=== PATIENT | female | born 1990 | race Caucasian/White ===

== ENCOUNTER 2023-06-19 08:23 | Emergency (ER) | payer OTHER, SELFPAY | END 2023-06-19 08:50 | LOC: EMR 08:23 | PROVIDERS: EMERGENCY PHYSICIAN Obstetrics & Gynecology; FAMILY PHYSICIAN Emergency Medicine | DX: Z03.79 Encounter for other suspected maternal and fetal conditions ruled out (principal); Z53.21 Procedure and treatment not carried out due to patient leaving prior to being seen by health care provider | CPT/HCPCS: 59025 ==

== ENCOUNTER 2025-05-05 20:09 | Emergency (ER) | payer OTHER, SELFPAY ==
[2025-05-05 20:19] VITALS: BP 129/95
[2025-05-05 20:50] VITALS: BP 102/65
[2025-05-05 21:03] LABS: Hematocrit 33.8 % (37.0-47.0); Hemoglobin 11.8 g/dL (12.0-16.0); Mean Corp Hgb Conc. 34.9 g/dL (33.0-37.0); Mean Corpuscular Volume 85.4 fL (81.0-99.0); Platelet Count 328 10^3/uL (130-400); Red Cell Dist. Width 12.4 % (11.5-14.5)
--- NOTE | 2025-05-05 21:13 | ED.GENMED ---
History of Present Illness
<Shahram Dacosta MD - Last Filed: 05/05/25 21:15>
General
Chief Complaint: Problems
Source: patient
Exam Limitations: none
Time Seen by Provider: 05/05/25 20:54
History of Present Illness
History of Present Illness:
G3, P2, 9 weeks presents with vaginal bleeding. Mild the last 3 to 4 days. Became severe since 5 PM this evening. Has gone through 3 pads in 90 minutes. Passed out in triage. No abdominal pain. No fever or chills.
Past History
<Shahram Dacosta MD - Last Filed: 05/05/25 21:15>
Past History
ED Past Medical History: None
Social History
Tobacco: Non-smoker
Personal:
Review of Systems
<Shahram Dacosta MD - Last Filed: 05/05/25 21:15>
Review of Systems
All Other Systems: Not applicable
Constitutional: Denies fever
Phy Exam
<Shahram Dacosta MD - Last Filed: 05/05/25 21:15>
Physical Exam
Physical Exam:
GENERAL: Alert and oriented. Stable vital signs but mildly pale
EYE: Orbits normal.
NECK: Supple
CARDIAC: Regular rate and rhythm without any obvious murmurs.
LUNGS: Clear breath sounds,normal
ABDOMEN: Soft, without focal tenderness or distention.
: Speculum exam, upon opening the speculum significant bleeding from the vaginal vault.
NEUROLOGICAL: Alert and oriented , grossly non-focal
SKIN: Mildly pale
MUSCULOSKELETAL: No edema,no deformity.Good color
PSYCH: Normal and appropriate interaction.
Course
<Shahram Dacosta MD - Last Filed: 05/05/25 21:15>
Orders/Labs/Results
Orders:
Orders
05/05/25 20:25
EKG [Electrocardiogram (*1)] Urgent
Reason for Study: Tachycardia
EKG- Treatment ONCE
05/05/25 20:26
US Transvaginal Only Urgent
Reason For Exam: threatened miscarriage
05/05/25 20:47
Type+Screen Urgent
Beta HCG Quantitative Urgent
Is this a screen?: No
Comment: is 9w3d states she is O+
Complete Blood Count/With Diff Urgent
05/05/25 23:35
LDRP Pathology Routine
Date Specimen was Collected: 05/05/25
Pre-Operative Diagnosis: missed AB
Operative Procedure: N/A
Gestational Age: 9w
Tissue Submitted: Other
Other Tissue Submitted: Products of conception
Abnormal Lab Results
05/05/25
20:47
WBC 15.7 H 10^3/uL
(4.8-10.8)
RBC 3.96 L 10^6/uL
(4.20-5.40)
Hgb 11.8 L g/dL
(12.0-16.0)
Hct 33.8 L %
(37.0-47.0)
Absolute Neuts (auto) 7.7 H 10^3/uL
(1.4-6.5)
Absolute Lymphs (auto) 6.8 H 10^3/uL
(1.2-3.4)
Absolute Monos (auto) 0.8 H 10^3/uL
(0.1-0.6)
05/05/25 20:47
Vital Signs
Initial and Last Documented VS:
Initial Vital Signs
Temp Pulse Resp BP Pulse Ox
98.2 F 102 20 129/95 98
05/05/25 20:19 05/05/25 20:19 05/05/25 20:19 05/05/25 20:19 05/05/25 20:19
Last Documented Vital Signs
Temp Pulse Resp BP Pulse Ox
98.2 F 102 15 118/55 98
05/05/25 20:19 05/05/25 23:30 05/05/25 23:30 05/05/25 23:00 05/05/25 23:30
<Brandyn Alamo, DO - Last Filed: 05/07/25 23:46>
Orders/Labs/Results
Orders:
Orders
05/05/25 20:25
EKG [Electrocardiogram (*1)] Urgent
Reason for Study: Tachycardia
EKG- Treatment ONCE
05/05/25 20:26
US Transvaginal Only Urgent
Reason For Exam: threatened miscarriage
05/05/25 20:47
Type+Screen Urgent
Beta HCG Quantitative Urgent
Is this a screen?: No
Comment: is 9w3d states she is O+
Complete Blood Count/With Diff Urgent
05/05/25 23:35
LDRP Pathology Routine
Date Specimen was Collected: 05/05/25
Pre-Operative Diagnosis: missed AB
Operative Procedure: N/A
Gestational Age: 9w
Tissue Submitted: Other
Other Tissue Submitted: Products of conception
Abnormal Lab Results
05/05/25
20:47
WBC 15.7 H 10^3/uL
(4.8-10.8)
RBC 3.96 L 10^6/uL
(4.20-5.40)
Hgb 11.8 L g/dL
(12.0-16.0)
Hct 33.8 L %
(37.0-47.0)
Absolute Neuts (auto) 7.7 H 10^3/uL
(1.4-6.5)
Absolute Lymphs (auto) 6.8 H 10^3/uL
(1.2-3.4)
Absolute Monos (auto) 0.8 H 10^3/uL
(0.1-0.6)
05/05/25 20:47
Vital Signs
Initial and Last Documented VS:
Initial Vital Signs
Temp Pulse Resp BP Pulse Ox
98.2 F 102 20 129/95 98
05/05/25 20:19 05/05/25 20:19 05/05/25 20:19 05/05/25 20:19 05/05/25 20:19
Last Documented Vital Signs
Temp Pulse Resp BP Pulse Ox
98.2 F 102 15 118/55 98
05/05/25 20:19 05/05/25 23:30 05/05/25 23:30 05/05/25 23:00 05/05/25 23:30
Information
Weeks gestation: N/A
Location: N/A
<Shahram Dacosta MD - Last Filed: 05/05/25 21:15>
MDM/Problems Addressed
Differential Diagnosis Includes:
Differential would include miscarriage, ectopic. Significant bleeding clinically. However hemoglobin reasonably stable. OB was updated upon her initial evaluation and after the speculum exam. Going to ultrasound currently
<Shahram Dacosta MD - Last Filed: 05/05/25 21:15>
*Pulse Oximetry
SaO2: 98
Oxygen Mode of Delivery: Room air
<Brandyn Alamo DO - Last Filed: 05/07/25 23:46>
*Pulse Oximetry
Patient hypoxic: yes
*Critical Care Note
Total Time (30-74mins, 75-104mins- exclusive of procedures): Not Applicable
<Brandyn Alamo DO - Last Filed: 05/07/25 23:46>
Update Note
Update Note:
Patient seen by Dr. Minda Arguello from [facility]. After exam, large clot was removed. Patient is cleared to be discharged. She has follow-up scheduled for next week.
ED Attending Note
<Shahram Dacosta MD - Last Filed: 05/05/25 21:15>
-
Portions of this chart may have been created with voice recognition software.� Occasional wrong word or��sound alike� substitutions may have occurred due to the inherent limitations of voice recognition software.
Discharge Plan
Departure
Patient Disposition: Home (Routine Discharge)
Date of Disposition: 05/05/25
Time of Disposition: 23:39
Patient with high blood pressure during this ER visit?: Yes
Condition: Good
Discharge Problem:
Miscarriage
Instructions: Miscarriage (DC), BLOOD PRESSURE
Prescriptions:
No Action
prenat.vits,maral,zfm-apnt-febho Tablet
1 tab PO QHS
sennosides-docusate sodium [Stool Softener-Stimulant Laxat] 8.6-50 mg Tablet
1 tab PO DAILYPRN PRN (Reason: constipation) Qty: 0 0RF
ibuprofen 600 mg Tablet
400 mg PO Q4HPRN PRN (Reason: moderate pain/cramps) Qty: 0 0RF
acetaminophen 325 mg Tablet
650 mg PO Q4HPRN PRN (Reason: mild pain) Qty: 0 0RF
Referrals:
Minda Arguello MD [Active, Gynecology]
Tresa Toribio MD [Family Provider, Family Practice]
Activity Restrictions/Additional Instructions:
Please keep your previously scheduled appointment for [facility] scheduled for next week.
Interventions
Interventions:
*Risk Screen - Suicide Last Done: 05/05/25 20:19
*General Assessment Last Done: 05/06/25 00:41
*Neglect/Abuse Screening Last Done: 05/05/25 20:19
*ED- Fall Risk Assessment Last Done: 05/05/25 20:19
*ED COVID-19 Vaccine History Last Done: 05/06/25 00:41
*ED Influenza Vaccine History Last Done: 05/06/25 00:41
*Nursing Disposition Last Done: 05/06/25 00:41
ED-Female Genitourinary Assessment Last Done: 05/05/25 21:25
Discharge Date and Time
Discharge Date/Time: 05/06/25 00:42
Print Language: YAKUT
[2025-05-05 21:27] LABS: Nucleated Red Blood Cells % 0 %
[2025-05-05 21:34] LABS: Beta HCG Quantitative 6910.20 mIU/ml
[2025-05-05 22:02] VITALS: BP 120/62
[2025-05-05 23:00] VITALS: BP 118/55
--- NOTE | 2025-05-05 23:43 | CON.MD ---
CC / HPI / ROS
-
Chief Complaint:
vaginal bleeding at 9w
History of Present Illness:
Samia Hughes is a 35 yo at 9w presenting with heavy vaginal bleeding at home. She started having light pink spotting last Friday (04/30/25) that progressed to heavier vaginal bleeding this evening at 1700. States that she soaked through 2
pads in 1 hr. While in ED triage, she had a pre-syncopal episode where she felt hot, ears ringing and her vision got black. She doesn't believe she fully passed out because she could hear what what occurring around her.
Review of Systems:
+ Vaginal bleeding and nausea
- fevers, chills, vomiting.
Current/Past Med/Surg History
-
Respiratory: No Issues Reported
Vascular / Heart: No Issues Reported
Neurological / Brain / Spinal Cord: No Issues Reported
Gastrointestinal/Bowel/Digestive: No Issues Reported
Musculoskeletal: No Issues Reported
Urinary/Reproductive: Other (vaginal bleeding)
Medications / Supplements
Medication / Herbal Supplements: Yes
�Medication �Instructions �Recorded
prenat.vits,maral,ixs-crub-tgyxv 1 tab PO QHS Supplement 06/26/23
acetaminophen 325 mg tablet 650 mg (2 x 325 mg) PO Q4HPRN PRN 06/28/23
mild pain #0 tabs
ibuprofen 600 mg tablet 400 mg (0.6667 x 600 mg) PO Q4HPRN 06/28/23
PRN moderate pain/cramps #0 tabs
sennosides 8.6 mg-docusate sodium 1 tab PO DAILYPRN PRN constipation 06/28/23
50 mg tablet (Stool #0 tabs
Softener-Stimulant Laxative)
Allergies
Allergies: Yes
Allergy/AdvReac Type Severity Reaction Status Date / Time
Penicillins Allergy Rash as Verified 05/05/25 20:23
Vital Signs / Labs
-
Vital Signs and Labs:
Temp Pulse Resp BP Pulse Ox
98.2 F 93 22 118/55 99
05/05/25 20:19 05/05/25 23:15 05/05/25 23:15 05/05/25 23:00 05/05/25 23:15
05/05/25 20:47
05/05/25
20:47
WBC 15.7 H
RBC 3.96 L
Hgb 11.8 L
Hct 33.8 L
Absolute Neuts (auto) 7.7 H
Absolute Lymphs (auto) 6.8 H
Absolute Monos (auto) 0.8 H
Rh Pos
hCG (04/18): 20357
hCG (05/05): 6910
Pelvic US:
Indication: threatened miscarriage
Comparison: None
Findings: Transabdominal images were performed for more global assessment of the pelvis. Transvaginal images were obtained for more detailed assessment of the uterus, ovaries and adnexa.
Uterus measures 9.9 x 4.3 x 5.8 cm. No uterine masses identified. No intrauterine is identified.. Rounded fluid noted in the lower cervix/vaginal canal, possibly a gestational sac.
Right ovary measures 3.4 x 2.3 x 2.6 cm and is unremarkable. Left ovary is not visualized. Arterial and venous Doppler flow is detected to the right ovary.
No additional adnexal masses. No free fluid.
IMPRESSION:
1. of uncertain location. An intrauterine is not identified. Differential considerations include an early intrauterine , missed / in progress or ectopic . Recommend follow up Beta-HCGs and/or
ultrasounds to further evaluate, as clinically warranted.
Data Reviewed / Physical Exam
-
Vital Signs
Temp Pulse Resp BP Pulse Ox
98.2 F 93 22 118/55 99
05/05/25 20:19 05/05/25 23:15 05/05/25 23:15 05/05/25 23:00 05/05/25 23:15
Physical Exam:
General: well appearing, no acute distress
Cards: regular rate
Lungs: non-labored breathing
Abd: soft, nontender, nondistended
Pelvic: Moderate blood clot with tissue removed from cervical os, visibly dilated 1cm without continued bleeding.
Assessemnt/Plan
-
Samia is a 35 yo presenting with vaginal bleeding found to have a complete AB.
-Tissue removed on pelvic exam and sent to pathology to confirm POCs.
-Discussed expectations and warning signs to call
-Recommend f/u w/in 1 week, patient already has appt scheduled for 05/10.
-Reviewed that she could try again for after her menses returns.
-Pt stable for discharge and case discussed with ED physician.
== END 2025-05-06 00:42 | disposition home or self-care (01) ==
LOC: EMR 20:09
PROVIDERS: Emergency Medicine; EMERGENCY PHYSICIAN Emergency Medicine; FAMILY PHYSICIAN Family Medicine
DX: O02.1 Missed abortion (principal); Z3A.09 9 weeks gestation of pregnancy; O09.521 Supervision of elderly multigravida, first trimester; Z88.0 Allergy status to penicillin
CPT/HCPCS: 99284; 76817; 84702; 85025; 86850; 86900; 86901; 88305; 93005

== ENCOUNTER → 2025-05-10 06:57 | Outpatient (REF) | payer OTHER, SELFPAY | LOC: RAD 06:57 | PROVIDERS: ATTENDING PHYSICIAN Nurse Practitioner Family; FAMILY PHYSICIAN Nurse Practitioner Family | DX: Z34.81 Encounter for supervision of other normal pregnancy, first trimester (principal) | CPT/HCPCS: 76801; 76817 ==